=== PATIENT | female | born 2000 | race Caucasian/White ===

== ENCOUNTER 2023-04-29 13:04 | Emergency (ER) | payer BC, SELFPAY ==
[2023-04-29 13:16] VITALS: BP 121/74; PULSE 90; RESP 16; TEMP 36.7; O2SAT 99
--- NOTE | 2023-04-29 13:30 | ED.EXTPRO ---
HPI - Extremity Problem General Chief complaint: Extremity Problem,Nontraumatic Stated complaint: INFECTED TOE Time Seen by Provider: 04/29/23 13:20 Source: patient and RN notes reviewed Mode of arrival: ambulatory Limitations: no limitations History of Present Illness HPI Narrative: Patient presents today complaining of itching and pain to the base of her left 1st toenail x2 weeks with some draining pus since yesterday. She clean the area with peroxide and applied some antifungal cream without relief of symptoms. Related Data Home Medications Medication Instructions Recorded Confirmed bupropion HCl 300 mg 24 hr tablet, 300 mg PO DAILY 04/29/23 04/29/23 extended release duloxetine 40 mg capsule,delayed 40 mg PO DAILY 04/29/23 04/29/23 release Allergies Allergy/AdvReac Type Severity Reaction Status Date / Time No Known Allergies Allergy Verified 04/29/23 13:22 Review of Systems Review of Systems: CONSTITUTIONAL: Denies body aches, fever, chills, or sweats. EYES: Denies visual changes, redness, or discharge. ENT: Denies rhinorrhea, congestion, sore throat, or otalgia. CARDIOVASCULAR: Denies chest pain, palpitations, or edema. RESPIRATORY: Denies cough or dyspnea. GASTROINTESTINAL: Denies abdominal pain, nausea, vomiting, or diarrhea. GENITOURINARY: Denies dysuria or hematuria. SKIN: + toe itching and pain MUSCULOSKELETAL: Denies back pain, joint pain, or myalgia. NEUROLOGIC: Denies headache, numbness, tingling, or weakness. PSYCH: Denies depression or anxiety. PMFSH Comments At time of signature, I have reviewed and agree with nursing past medical, surgical, social and family history unless otherwise noted. Please see nursing chart for further information. There is no relevant family history pertinent to the presenting complaint Exam Narrative: GENERAL: Well-appearing, well-nourished, and in no acute distress. HEAD: Normocephalic, atraumatic. EYES: EOMI. No redness or drainage. Conjunctivae normal. ENT: Mucous membranes pink and moist. NECK: Normal AROM. CHEST: No respiratory distress. EXTREMITIES: Normal range of motion. No edema. SKIN: Warm, dry, no rash. Capillary refill normal. Normal skin turgor. Left 1st toe: at the cuticle area there is a small area of superficial peeling skin with mild tenderness to the underlying skin. No edema, erythema, or rash to the toe. No active drainage, but patient states there was draining purulent discharge to the base of the toenail. Toenail appears unaffected. The medial and lateral nail folds appear normal and are nontender. Distal sensation intact. Capillary refill normal. Full range of motion of the toe. NEURO: No focal deficits. Alert and oriented x3. Gait steady. PSYCH: Normal affect. No signs of depression or anxiety. Course Course Level of Care: Express Care Visit Vital Signs Vital signs: Vital Signs Temperature 98.1 F 04/29/23 13:16 Pulse Rate 90 04/29/23 13:16 Respiratory Rate 16 04/29/23 13:16 Blood Pressure 121/74 04/29/23 13:16 Pulse Oximetry 99 04/29/23 13:16 Temperature 98.1 F 04/29/23 13:16 Pulse Rate 90 04/29/23 13:16 Respiratory Rate 16 04/29/23 13:16 Blood Pressure 121/74 04/29/23 13:16 Pulse Oximetry 99 04/29/23 13:16 Reviewed MDM - Extremity (Nontraumatic) MDM Narrative Medical decision making narrative: Patient's toe appears that there is some peeling skin at the base of the toenail, but otherwise appears normal. Unsure of the etiology of patient's drainage, but will treat with antibiotics due to the purulent nature. Differential Diagnosis Differential diagnosis: Likely cellulitis and other (Paronychia, ingrown toenail, eczema, fungal infection) Critical Care Time Critical Care Time Critical Care Time: No Discharge Plan Discharge Clinical Impression: Complaint about toe Patient Disposition: Home, Self-Care Condition: Stable Instructions: Antibiotic Fo
== END 2023-04-29 13:40 | disposition home or self-care (01) ==
PROVIDERS: Emergency Provider Nurse Practitioner
DX: M79.675 Pain in left toe(s) (principal); F32.A Depression, unspecified
CPT/HCPCS: 99213; G0463

== ENCOUNTER 2023-05-11 15:14 | Emergency (ER) | payer BC, SELFPAY ==
[2023-05-11 15:19] VITALS: BP 127/82; PULSE 94; RESP 16; TEMP 37.2; O2SAT 100
[2023-05-11 15:23] VITALS: BP 127/82; PULSE 94; RESP 16; TEMP 37.2; O2SAT 100
--- NOTE | 2023-05-11 15:33 | ED.GENADULT ---
HPI - General Adult General Chief complaint: Extremity Problem,Nontraumatic Stated complaint: Infected Toe Time Seen by Provider: 05/11/23 15:28 Source: patient, RN notes reviewed and old records reviewed Mode of arrival: ambulatory Limitations: no limitations History of Present Illness HPI narrative: Patient presents today complaining of pain to her left great toe. She was seen at [facility] for same complaint on 05/03/2023 and started on some Keflex. States her pain is worse now. Currently rates it 9/10 and has been taking Aleve without relief. She has not schedule an appointment with her PCP or podiatry as instructed. Related Data Home Medications Medication Instructions Recorded Confirmed bupropion HCl 300 mg 24 hr tablet, 300 mg PO DAILY 04/29/23 05/11/23 extended release duloxetine 40 mg capsule,delayed 40 mg PO DAILY 04/29/23 05/11/23 release Allergies Allergy/AdvReac Type Severity Reaction Status Date / Time No Known Allergies Allergy Verified 05/11/23 15:23 Review of Systems Review of Systems: CONSTITUTIONAL: Denies body aches, fever, chills, or sweats. EYES: Denies visual changes, redness, or discharge. ENT: Denies rhinorrhea, congestion, sore throat, or otalgia. CARDIOVASCULAR: Denies chest pain, palpitations, or edema. RESPIRATORY: Denies cough or dyspnea. GASTROINTESTINAL: Denies abdominal pain, nausea, vomiting, or diarrhea. GENITOURINARY: Denies dysuria or hematuria. SKIN: Denies rash, itching, or wounds. MUSCULOSKELETAL: + left great toe pain NEUROLOGIC: Denies headache, numbness, tingling, or weakness. PSYCH: Denies depression or anxiety. PMFSH Comments At time of signature, I have reviewed and agree with nursing past medical, surgical, social and family history unless otherwise noted. Please see nursing chart for further information. There is no relevant family history pertinent to the presenting complaint Exam Narrative: GENERAL: Well-appearing, well-nourished, and in no acute distress. HEAD: Normocephalic, atraumatic. EYES: EOMI. No redness or drainage. Conjunctivae normal. ENT: Mucous membranes pink and moist. NECK: Normal AROM. CHEST: No respiratory distress. EXTREMITIES: Left great toe: Tenderness to the lateral nail fold with some mild edema and erythema. Medial nail fold and base of nail appear normal. Distal sensation intact. Capillary refill normal. Full range of motion of the toe. SKIN: Warm, dry, no rash. Capillary refill normal. Normal skin turgor. NEURO: No focal deficits. Alert and oriented x3. Gait steady. PSYCH: Normal affect. No signs of depression or anxiety. Course Course Level of Care: Express Care Visit Vital Signs Vital signs: Vital Signs Temperature 99.0 F 05/11/23 15:19 Pulse Rate 94 05/11/23 15:19 Respiratory Rate 16 05/11/23 15:19 Blood Pressure 127/82 05/11/23 15:19 Pulse Oximetry 100 05/11/23 15:19 Oxygen Delivery Room Air 05/11/23 15:19 Temperature 99.0 F 05/11/23 15:23 Pulse Rate 94 05/11/23 15:23 Respiratory Rate 16 05/11/23 15:23 Blood Pressure 127/82 05/11/23 15:23 Pulse Oximetry 100 05/11/23 15:23 Oxygen Delivery Room Air 05/11/23 15:23 Reviewed Medical Decision Making MDM Narrative Medical decision making narrative: Patient states she has not taking her Keflex as prescribed, as she has for gotten a few doses. Will switch her antibiotic out to Bactrim and have instructed her to follow-up with podiatry as she likely needs removal of her ingrown toenail. Patient agrees with plan. Anticipatory guidance given. Differential Diagnosis Differential Diagnosis: Ingrown toenail, cellulitis, paronychia Vital Signs Vital Signs: Vital Signs Temperature 99.0 F 05/11/23 15:19 Pulse Rate 94 05/11/23 15:19 Respiratory Rate 16 05/11/23 15:19 Blood Pressure 127/82 05/11/23 15:19 Pulse Oximetry 100 05/11/23 15:19 Oxygen Delivery Room Air 05/11/23 15:19
== END 2023-05-11 15:37 | disposition home or self-care (01) ==
PROVIDERS: Emergency Provider Nurse Practitioner
DX: L60.0 Ingrowing nail (principal); F32.A Depression, unspecified
CPT/HCPCS: 99213; G0463

== ENCOUNTER 2023-08-03 17:39 | Emergency (ER) | payer BC, SELFPAY ==
[2023-08-03 17:44] VITALS: BP 114/72; PULSE 94; RESP 16; TEMP 36.7; O2SAT 99
--- NOTE | 2023-08-03 17:46 | ED.URI ---
HPI - URI/Sore Throat General Chief Complaint: Upper Respiratory Infection Stated Complaint: Strep Test Time Seen by Provider: 08/03/23 17:53 Source: patient, RN notes reviewed and old records reviewed Mode of arrival: ambulatory Limitations: no limitations History of Present Illness HPI Narrative: 23-year-old female presents to the [facility] with a 2 day history of generalized body aches, sore throat, headache, runny nose. Denies any cough or fevers. Has taken [id number] cold medicine. Related Data Home Medications Medication Instructions Recorded Confirmed bupropion HCl 300 mg 24 hr tablet, 300 mg PO DAILY 04/29/23 08/03/23 extended release duloxetine 40 mg capsule,delayed 40 mg PO DAILY 04/29/23 08/03/23 release Allergies Allergy/AdvReac Type Severity Reaction Status Date / Time No Known Allergies Allergy Verified 08/03/23 17:49 Review of Systems Review of Systems: All systems reviewed & are unremarkable except as noted in HPI and below Constitutional: Constitutional: Reports as per HPI, Reports body ache(s) and Reports headache(s) Eyes: Eyes: Reports no additional eye complaints ENT: Reports as per HPI and Reports sore throat Cardiovascular: Cardiovascular: Reports no additional cardiovascular complaints, Denies chest pain and Denies dyspnea Respiratory: Respiratory: Reports no additional respiratory complaints, Denies chest congestion, Denies cough and Denies dyspnea Gastrointestinal: Gastrointestinal: Reports no additional gastrointestinal complaints, Denies abdominal pain, Denies nausea and Denies vomiting Musculoskeletal: Musculoskeletal: Reports no additional musculoskeletal complaints Integumentary/Breasts: Skin/Breast: Reports system reviewed and no additional complaints, except as docu Neurologic: Reports system reviewed and no additional complaints, except as documented Psychiatric: Psychiatric: Reports no additional psychiatric complaints Allergic/Immunologic: Allergic/Immunologic: Reports no additional allergic/immunologic complaints PMFSH Past Medical History Medical History Anxiety and depression Surgical History Surgical History No pertinent past surgical history Social History Social History Occupation/Education: student Gender identity (if verbalized by the patient): Female Comments At the time of my signature, I reviewed and agree with the nursing past medical, surgical, social, and family history. There is no relevant family history pertinent to the patient complaint. Exam Const: General: cooperative, healthy appearing, comfortable, no acute distress, well developed, alert and well nourished Nutritional Appearance: well nourished Orientation/consciousness: patient oriented x3 Limitations: no limitations HENMT: Head: normal to inspection Ears: hearing grossly normal bilaterally, external ears normal, TM's normal bilaterally, EAC's normal, mastoids normal and no periauricular adenopathy Face/Nose/Sinus: Normal external nose present, Normal nares present, Normal nasal mucous membranes and turbinates present, normal facial exam and face symmetric Face and sinus: normal facial exam and face symmetric Mouth: Yes Normal oral and palatal mucosa present, Yes lip normal and Yes moist mucous membranes Throat: posterior oropharynx normal, tonsils normal and uvula midline Eyes: General: appearance normal, both eyes and all related structures Alignment and Position: alignment normal Periorbital: periorbital findings normal Pupils: Equal, round and reactive pupils present EOM: EOMs intact bilaterally Neck: Neck: normal visual inspection, full ROM, no lymphadenopathy and no meningeal signs Chest: Chest palpation & inspection: normal inspection of the chest Resp: Effort & Inspection: normal respiratory e
== END 2023-08-03 18:11 | disposition home or self-care (01) ==
PROVIDERS: Emergency Provider Nurse Practitioner
DX: J06.9 Acute upper respiratory infection, unspecified (principal); Z20.822 Contact with and (suspected) exposure to COVID-19; F41.9 Anxiety disorder, unspecified; F32.A Depression, unspecified
CPT/HCPCS: 87081; 87426; 87804; 87880; 99213; G0463